=== PATIENT | male | born 1940 | race Caucasian/White ===

== ENCOUNTER → 2022-08-22 | Outpatient (CLI) | payer MEDICARE, BC ==
[2022-08-22 14:11] VITALS: BP 153/76; PULSE 61; RESP 18; TEMP 98.9
--- NOTE | 2022-08-22 14:29 | P.GSHP ---
History of Present Illness H&P Date: 08/22/22 Chief Complaint: right breast mass Adolfo is an 82 year old white male with a complaint of a right breast mass. He had a bilateral mammogram on which revealed a lesion in the right breast. In the left breast a minimal increased subareolar density was identified. Ultrasound of the right breast was recommended. This was performed on the same date which revealed a 2.4 cm area of irregular nodularity in the right subareolar region. He was seen in consultation for Dr. Jones. He has felt the lump in his right breast for about 4 months. The lump has not increased in size. The right breast nodule is painful if bumped. Never had any surgery on his breast. He is not complaining of any testicular lumps or masses. Note from Dr. Jones 06-05-22 reviewed Nicotine: none caffiene: tea 1 cup/day chocolate: occasional Family history: sister: ovarian cancer sister: breast cancer Surgeries: left knee right hip back surgery 2 times Medical History: HTN high cholesterol abnormal heart rate back pain norco/gabapentane Social History: smoker stopped 20 years ago alcohol: wine every night drugs: none - Constitutional Constitutional: Denies chills, Denies fever - EENT Eyes: right blurred vision, denies pain Ears: deny: decreased hearing, tinnitus Ears, nose, mouth and throat: Denies headache, Denies sore throat - Breasts Breasts: bilateral: as per HPI - Cardiovascular Cardiovascular: Denies chest pain, Denies shortness of breath - Respiratory Respiratory: Denies cough, Denies 7 - Gastrointestinal Gastrointestinal: Reports constipation, Reports diarrhea, Denies abdominal pain, Denies nausea, Denies vomiting - Genitourinary (Male) Genitourinary: Denies dysuria, Denies hematuria - Musculoskeletal Musculoskeletal: Reports as per HPI - Integumentary Integumentary: Denies pruritus, Denies rash - Neurological Neurological: Denies numbness, Denies weakness - Psychiatric Psychiatric: Denies anxiety, Denies depression - Endocrine Endocrine: Denies fatigue, Denies weight change - Hematologic/Lymphatic Comment: fish oil - Allergic/Immunologic Allergic/Immunologic: Reports as per HPI Medications and Allergies Allergies Allergy/AdvReac Type Severity Reaction Status Date / Time No Known Allergies Allergy Unverified 08/22/22 14:05 Surgical - Exam BMI: 30.6 - General no distress - Eyes normal ocular movement - Neck trachea midline - Respiratory normal respiratory effort, clear to auscultation - Cardiovascular Rhythm: regular Heart Sounds: normal: S1, S2 - Abdomen Abdomen: soft, non tender, no guarding, no rigid, no rebound - Integumentary normal turgor - Neurologic no disoriented, no combative - Musculoskeletal arthritis uses a cane - Psychiatric oriented to time, oriented to person, oriented to place, speech is normal, memory intact Breast Exam: Inspection: bilateral enlarged breast palpation: Breasts: Right breast: Nodularity behind the nipple areolar complex approximately 2 cm in size, otherwise no dominant masses or nodules of concern, tender to palpation Right axilla: No adenopathy of concern Left breast: Nodularity behind the nipple areolar complex approximately 1 cm in size tender to palpation otherwise no dominant masses or nodules of concern Left axilla: No adenopathy of concern Testicular exam: No testicular masses of concern right or left testicle Results Mammogram report reviewed Assessment and Plan Assessment: Impression: Bilateral breast masses right greater than left probable gynecomastia Plan: ultrasound core biopsy of the right breast mass than follow up Skin benefits of the procedure discussed with the patient and his . They understand and wish to proceed. This will be scheduled in the near future. CC: Dr. Jones
== END | disposition home or self-care (01) ==
LOC: WWCWWP 14:01
PROVIDERS: ATTEND Surgery
DX: Z53.9 Procedure and treatment not carried out, unspecified reason (principal)

== ENCOUNTER → 2022-09-12 | Day surgery (SDC) | payer MEDICARE, BC ==
--- NOTE | 2022-09-20 11:17 | USB ---
Pathology Description: Location: posterior, retroareolar. Marker Left Behind. Needle Type: Mammotome Cores: 5 Gauge: 13 The procedure of ultrasound guided core biopsy was explained to the patient. Benefits, alternatives, and risks were discussed. An informed consent was then obtained. The subareolar area of suspected moderate gynecomastia is targeted for biopsy. The patient was placed in supine positioning for imaging and for the procedure. The overlying skin was prepped and draped in usual sterile fashion. Lidocaine was used as anesthetic into the skin and subcutaneous tissue up to area of concern in the right breast. Under ultrasound guidance, a 13-gauge vacuum-assisted mammotome Elite biopsy gun was used to obtain 5 core samples. Following this, a [employer]rom[employer] butterfly clip was left in lesion. The patient tolerated the procedure well without any immediate complication. The patient was kept in the radiology department for short stay after the procedure and then discharged home in stable condition. Postprocedure mammogram was deferred as the patient is undecided if he will proceed with excision if benign results. IMPRESSION: Successful, uncomplicated ultrasound guided core biopsy of subareolar right breast abnormality, suspected gynecomastia; full pathology results to follow. Pathology Results: Result: Benign, Gynecomastia. RIGHT BREAST, POSTERIOR NIPPLE, CORE BIOPSY: Gynecomastia with fibrosis, mild chronic inflammation and mild to moderate usual ductal hyperplasia. Negative for malignancy within current specimen. Overall Assessment: Benign Management: Diagnostic Breast Ultrasound of the right breast in 6 months. Electronically signed and approved by: Stevenson Lee M.D. Radiologist
== END ==
LOC: RADUSWWP 12:36
PROVIDERS: ATTEND Surgery
DX: N62 Hypertrophy of breast (principal); N60.91 Unspecified benign mammary dysplasia of right breast; N60.31 Fibrosclerosis of right breast; N61.0 Mastitis without abscess
CPT/HCPCS: 88305; 19083; A4648

== ENCOUNTER → 2022-09-20 | Outpatient (CLI) | payer MEDICARE ==
[2022-09-20 12:43] VITALS: BP 168/89; PULSE 51; RESP 18; TEMP 97.8
--- NOTE | 2022-09-20 12:54 | P.PN ---
Subjective Progress Note Date: 09/20/22 Principal diagnosis: gynecomastia right breast Adolfo is an 82 year old white male status post ultrasound core biopsy of the right breast. Pathology was consistent with gynecomastia. The patient tolerated the biopsy without complaints. Objective - Vital Signs Vital signs: Vital Signs Temp 97.8 F 09/20/22 12:40 Pulse 51 L 09/20/22 12:40 Resp 18 09/20/22 12:40 BP 168/89 09/20/22 12:40 Pulse Ox 95 09/20/22 12:40 FiO2 Intake & Output 09/19/22 09/20/22 09/20/22 18:59 06:59 18:59 Weight 99.79 kg - Constitutional General appearance: Present: cooperative - EENT Eyes: Present: EOMI ENT: Present: hearing grossly normal - Neck Neck: Present: normal ROM - Respiratory Respiratory: bilateral: CTA - Cardiovascular Heart sounds: normal: S1, S2 - Integumentary Integumentary Comment(s): mild ecchymosis at biopsy site, no evidence of infection or hematoma, right breast Assessment and Plan Assessment: Impression: Right breast ultrasound-guided core biopsy consistent with gynecomastia Plan: Bilateral breast ultrasound in 6 months follow up at that time CC: Dr. Jones
== END ==
LOC: WWCWWP 12:23
PROVIDERS: ATTEND Surgery
DX: R92.8 Other abnormal and inconclusive findings on diagnostic imaging of breast (principal); Z88.0 Allergy status to penicillin

== ENCOUNTER → 2023-03-14 | Outpatient (CLI) | payer MEDICARE ==
--- NOTE | 2023-03-14 14:33 | USB ---
Reason for Exam: Follow-up at short interval from prior study. Patient History: 09/12/2022, Benign US biopsy breast VAD RT on the right side. Technique: Method: Targeted. Findings: The axilla of both breasts and the retroareolar of both breasts were scanned. Imaged: Ultrasound imaging of: Area of concern in the retroareolar region and axilla. There is gynecomastia changes bilaterally. No suspicious masses visualized. Clip is noted on the right. No evidence for organizing fluid collection or mass. Overall Assessment: Benign, BI-RAD 2 Management: No follow up is required for this exam. A clinical breast exam by your physician is recommended on an annual basis and results should be correlated with mammographic findings. This exam should not preclude additional follow-up of suspicious palpable abnormalities. Results were given to the patient verbally at the time of exam. Electronically signed and approved by: Chip Sigala DO
--- NOTE | 2023-03-14 15:58 | P.PN ---
Subjective Progress Note Date: 03/14/23 Principal diagnosis: bilateral gynecomastia right breast mass 08-22-22 Adolfo is an 83 year old white male with a complaint of a right breast mass. He had a bilateral mammogram on 9621 which revealed a lesion in the right breast. In the left breast a minimal increased subareolar density was identified. Ultrasound of the right breast was recommended. This was performed on the same date which revealed a 2.4 cm area of irregular nodularity in the right subareolar region. He was seen in consultation for Dr. Jones. He has felt the lump in his right breast for about 4 months. The lump has not increased in size. The right breast nodule is painful if bumped. Never had any surgery on his breast. He is not complaining of any testicular lumps or masses. 03-14-23 The patient on 09-12-22 had a core biopsy of the right breast which showed gynecomastia. A bilateral ultrasound was done on Ultrasound done 03-14-23 reviewed consistent with bilateral gynecomastia. The patient states that he continues to have discomfort particularly in the right breast if he gets hit. The nodularity has not decreased in size but may have minimally increased in size. Nicotine: none caffiene: tea 1 cup/day chocolate: occasional Family history: sister: ovarian cancer sister: breast cancer Surgeries: left knee right hip back surgery 2 times Medical History: HTN high cholesterol abnormal heart rate back pain norco/gabapentane Social History: smoker stopped 20 years ago alcohol: wine every night drugs: none - Constitutional Constitutional: Denies chills, Denies fever - EENT Eyes: right blurred vision, denies pain Ears: deny: decreased hearing, tinnitus Ears, nose, mouth and throat: Denies headache, Denies sore throat - Breasts Breasts: bilateral: as per HPI - Cardiovascular Cardiovascular: Denies chest pain, Denies shortness of breath - Respiratory Respiratory: Denies cough - Gastrointestinal Gastrointestinal: Reports constipation, Reports diarrhea, Denies abdominal pain, Denies nausea, Denies vomiting - Genitourinary (Male) Genitourinary: Denies dysuria, Denies hematuria - Musculoskeletal Musculoskeletal: Reports as per HPI - Integumentary Integumentary: Denies pruritus, Denies rash - Neurological Neurological: Denies numbness, Denies weakness - Psychiatric Psychiatric: Denies anxiety, Denies depression - Endocrine Endocrine: Denies fatigue, Denies weight change - Hematologic/Lymphatic Comment: fish oil - Allergic/Immunologic Allergic/Immunologic: Reports as per HPI Medications and Allergies Allergies Allergy/AdvReac Type Severity Reaction Status Date / Time No Known Allergies Allergy Unverified 08/22/22 14:05 Objective - Constitutional General appearance: Present: cooperative - EENT Eyes: Present: edentulous ENT: Present: hearing grossly normal - Neck Neck: Present: normal ROM - Respiratory Respiratory: bilateral: CTA - Cardiovascular Heart sounds: normal: S1, S2 - Integumentary Integumentary: Present: normal turgor - Musculoskeletal Musculoskeletal: Present: gait normal - Psychiatric Psychiatric: Present: A&O x's 3, appropriate affect, intact judgment & insight - Additional findings Additional findings: Breast Exam: Inspection: bilateral enlarged breast palpation: Breasts: Right breast: Nodularity behind the nipple areolar complex approximately 3 cm in size, otherwise no dominant masses or nodules of concern, tender to palpation Right axilla: No adenopathy of concern Left breast: Nodularity behind the nipple areolar complex approximately 1 cm in size tender to palpation otherwise no dominant masses or nodules of concern Left axilla: No adenopathy of concern Assessment and Plan Assessment: Pressure: Bilateral gynecomastia, symptomatic on the right side if it is bumped Plan: At this time the patient would like to avoid any surgical intervention if possible we of biopsy proven that the lesion on the right is gynecomastia Clinical examination 1 year patient to come sooner any questions or concerns CC: Dr. Jones
[2023-03-14 16:05] VITALS: BP 158/74; PULSE 58; RESP 18; TEMP 97.9
== END ==
LOC: WWCWWP 14:12
PROVIDERS: ATTEND Surgery
DX: R92.8 Other abnormal and inconclusive findings on diagnostic imaging of breast (principal); N62 Hypertrophy of breast; Z80.3 Family history of malignant neoplasm of breast; I10 Essential (primary) hypertension; E78.00 Pure hypercholesterolemia, unspecified; R00.8 Other abnormalities of heart beat; Z88.0 Allergy status to penicillin